=== PATIENT | female | born 1950 | race Caucasian/White ===

== ENCOUNTER 2017-12-21 13:40 | Outpatient (CLI) | payer MEDICARE, OTHER | END 2017-12-21 13:41 | disposition home or self-care (01) | LOC: BICCT 13:40 | PROVIDERS: ATTEND Internal Medicine | DX: Z13.6 Encounter for screening for cardiovascular disorders (principal); I25.10 Atherosclerotic heart disease of native coronary artery without angina pectoris; Z82.49 Family history of ischemic heart disease and other diseases of the circulatory system | CPT/HCPCS: 75571 ==